=== PATIENT | female | born 1945 | race Caucasian/White ===

== ENCOUNTER 2016-06-23 22:51 | Emergency (ER) | payer MEDICARE, OTHER ==
--- NOTE | 2016-06-23 23:30 | DIRPT ---
CLINICAL DATA: Shortness of breath this evening, syncope EXAM: PORTABLE CHEST 1 VIEW COMPARISON: Portable exam 2308 hours compared to 12/02/2012 FINDINGS: Upper normal heart size. Atherosclerotic calcification aorta. Mediastinal contours and pulmonary vascularity normal. Lungs clear. Clothing artifacts. No definite pleural effusion or pneumothorax. Bones unremarkable. IMPRESSION: No acute abnormalities. Electronically Signed By: Thong Rivers M.D. On: 06/23/2016 23:27
--- NOTE | 2016-06-23 23:32 | EDPRACDOC ---
- General Information Chief Complaint: Altered Mental Status Stated Complaint: ALTERED MENTAL STATUS/FALL Time Seen by Provider: 06/23/16 23:05 Home Medications: Home Medications Aspirin [Aspirin EC] 81 mg PO DAILY 04/25/14 Furosemide [Lasix] 40 mg PO DAILY 04/25/14 Levothyroxine [Synthroid, Levoxyl] 50 mcg PO DAILY 04/25/14 Metoclopramide HCl [Reglan] 10 mg PO ACHS 04/25/14 Potassium Chloride [Klor-Con M20] 10 meq PO DAILY 04/25/14 Propranolol HCl [Inderal] 20 mg PO DAILY 04/25/14 Solifenacin Succinate [Vesicare] 10 mg PO DAILY 04/25/14 Thiamine HCl [Vitamin B-1] 100 mg PO DAILY 04/25/14 Albuterol Sulfate [Proair Hfa] 2 puff INH DAILY 09/20/14 Ammonium Lactate 140 gm TP DAILY 09/20/14 Calcium Carbonate/Vitamin D3 [Calcium + Vit D Caplet (600mg/400IU)] 500 mg PO DAILY 09/20/14 Desloratadine/Pseudoephedrine [Clarinex-D 12 Hour Tablet (2.5mg/120mg)] 1 tab PO Q12H PRN 09/20/14 Desonide 15 gm TP DAILY 09/20/14 Meloxicam 7.5 mg PO DAILY 09/20/14 Methocarbamol 500 mg PO DAILY 09/20/14 Calypso-3/Dha/Epa/Fish Oil [Fish Oil] 10,000 mg PO DAILY 09/20/14 Beclomethasone Dipropionate [Q Brenda 80] 2 puff INH BID 09/21/14 Allergies/Adverse Reactions: Allergies Allergy/AdvReac Type Severity Reaction Status Date / Time ampicillin Allergy Rash-Genera Verified 09/21/14 11:34 lized azithromycin [From Zithromax] Allergy See Verified 09/21/14 11:34 Comments ranitidine Allergy Unknown Verified 09/20/14 15:14 rosuvastatin calcium Allergy Unknown Verified 09/20/14 15:15 [From Crestor] - History of Present Illness HPI: PATIENT WAS STANDING IN KITCHEN. NEXT THING SHE REMEMBERS SHE WAS LYING IN THE FLOOR. EMS STATED CONFUSED AT FIRST AND NOW AT BASELINE. NO LOSS OF BLADDER CONTROL. NO TONGUE INJURY. DENIES PRIOR EPISODE. COMPLAINS OF HEADACHE AT VERTEX. NO HIP PAIN. NO CHEST PAIN. NO SOB. Duration: Since Injury Presyncopal phase:: Reports: None Postsyncopal phase:: Reports: Delayed recovery Prehospital care: Reports: IV, Moniter Associated Signs/Symptoms: Reports: Headache ED Past Medical History - History Reviewed Yes Nurses notes reviewed and agree except as marked Travel Outside of [place] in the Last 3 Months?: No - Patient Medical History Cardiac History: Reports: Hypertension, Hypercholesterolemia Respiratory History: Reports: Asthma GI/ History: Reports: Gastroesophageal Reflux Musculoskeletal History: Reports: Arthritis Systemic History: Reports: Hyperthyroidism, Hypothyroidism - Family Medical History Reports: Diabetes (BROTHER), Cancer (SISTER-BREAST), Stroke (SISTER). Denies: Hypertension, Cardiac Disorders - Social Medical History Smoking Status: Never smoker ETOH: None Substance Abuse: None Lives With: Family Lives In: Home EDM Review of Systems - Review of Systems ROS Negative Except as Marked: Yes All systems reviewed and were negative except as marked Constitutional: No Symptoms Reported. negative: Fever, Chills, Weakness, Fatigue, Loss of Appetite Eyes: No Symptoms Reported. negative: Redness, Blurred Vision, Double Vision, Discharge, Pain, Light Sensitive, Photophobia Ears: No Symptoms Reported. negative: Pain, Hearing Loss, Drainage, Ear Pulling Throat: No Symptoms Reported. negative: Pain, Swelling Nose: No Symptoms Reported. negative: Congestion, Bleeding, Discharge, Injection, Swelling, Deformity, Ecchymosis, Tender, Abrasion, Laceration Mouth: No Symptoms Reported. negative: Pain, Drooling Respiratory: No Symptoms Reported. negative: Cough, Brassy Cough, Barky Cough, Shortness of Breath, Wheezing, Hemoptysis Cardiovascular: Syncope. negative: Chest Pain, Cyanosis, Edema, Orthopnea, Palpitations, PND, Skin Mottling Gastrointestinal: No Symptoms Reported. negative: Pain, Constipation, Nausea, Vomiting, Diarrhea, Melena, Formula Intolerance Genitourinary: No Symptoms Reported. negative: Dysuria, Hematuria, Frequency, Discharge, Bleeding, Testicular Pain, Neurological: Headache. negative: Dizziness, Gait Difficulty, Numbness, Seizure , Speech Difficulty, Weakness Musculoskeletal: No Symptoms Reported. negative: Neck, Chestwall, Ribs, Back, Shoulder, Arm, Elbow, Forearm, Wrist, Hand, Pelvis, Hip, Femur, Knee, Leg, Ankle , Foot Integumentary: No Symptoms Reported. negative: Itching, Rash, Bruising, Wound Allergic/Immunologic: No Symptoms Reported. negative: Hives, Itching Hematologic: No Symptoms Reported. negative: Lymphadenopathy, Easy Bruising, Easy Bleeding Endocrine: No Symptoms Reported. negative: Weight Gain, Weight Loss Psychiatric: No Symptoms Reported. negative: Anxiety, Depression, Hallucinations, Insomnia, Suicidal - Physical Exam Constitutional: Alert (Awake), No apparent distress Oriented to: Time, Person, Place Last recorded Vital Signs: Oxygen Pulse Oxygen Saturation O2 Device Oxygen Flow Rate Fraction of Inspired Oxygen ( FIO2) - HEENT Head: Normal ( normocephalic) Eye Exam: Normal (PERRL, EOMI, Sclera white) Oropharynx: Normal (Pharynx:Moist without exudate,Gums-no swelling) Tympanic Membrane: Normal ENT EAC: Normal TMJ: Normal Nose: No Symptoms Reported (septum midline) Neck: Normal (FROM, trachea at midline) - Respiratory/Cardiovascular Respiratory: Normal - CTA (BBS clear to auscultation without adventitious sounds ) Cardiovascular: Normal (RRR without murmur, gallop or rub) - GI Auscultation: Normal (NABS) Palpation: Normal (Soft,No rebound or guarding, non distended) Tenderness: Non tender Jacome's Sign: Negative - Musculoskeletal Back: Normal (Non-Tender) Extremities: Normal (Normal tone, Pulses 2+ No cyanosis or edema, FROM) - Integumentary Skin: Normal, Warm, Dry Lymphatics: Normal (no adenopathy) - Neurologic Memory Impaired: Normal Motor Function: Normal (Normal tone, Pulses 2+ No cyanosis or edema, FROM) Cranial Nerve: Normal (CN II-X11 intact sensation, strength 5/5) Cerebellar: Normal Mood Description: Normal Perception: Normal - EKG EKG #1 EKG Time: 23:43 -: Yes EKG interpreted by me Rate: bpm: 57 [place]: Normal Rhythm: SB Block: None Hypertrophy: None ST: Normal ED Critical Care Note - Critical Care Note Total Time (mins): 60 - Departure Yes I personally saw and evaluated the patient. Disposition: Trans. to Other Hospital ([facility]) Condition: Fair Final Diagnosis: Subdural hematoma caused by concussion Qualifiers: Encounter type: initial encounter Loss of consciousness presence/duration: with LOC of 30 min or less Qualified Code(s): S06.5X1A - Traumatic subdural hemorrhage with loss of consciousness of 30 minutes or less, initial encounter Education/Counseling Given To: Patient Education/Counseling Given Regarding: Diagnosis, Treatment, Prognosis Referrals: Sanford Tabor MD [Primary Care Provider] - One Week Decision to Transfer Time: 23:58 - Physician Consulted Radiology Time Called: 23:47 Provider Called: MARGARITA (SUBDURAL FALX BLEED) Time Shuttle Hand Returned Call: 23:47 Other Time Called: 23:58 Provider Called: DR. THOMPSON ([facility]) Time Shuttle Hand Returned Call: 23:58 (WILL ACCEPT)
[2016-06-23] MEDS ORDERED: NIMODIPINE 30 MG CAP PO SCH (23:45)
[2016-06-23 23:46] VITALS: BMI 25.8
--- NOTE | 2016-06-23 23:50 | DIRPT ---
CLINICAL DATA: Fall, was found on kitchen floor, uncertain of how long she was there, patient does not remember event EXAM: CT HEAD WITHOUT CONTRAST CT CERVICAL SPINE WITHOUT CONTRAST TECHNIQUE: Multidetector CT imaging of the head and cervical spine was performed following the standard protocol without intravenous contrast. Multiplanar CT image reconstructions of the cervical spine were also generated. COMPARISON: CT head 06/20/2016 FINDINGS: CT HEAD FINDINGS Diffuse dilatation of the ventricular system unchanged. No midline shift or mass effect. Small vessel chronic ischemic changes of deep cerebral white matter. High attenuation subdural hematoma identified along the anterior falx up to 8 mm thick. Questionable focus of LEFT pontine hemorrhage versus beam hardening artifact from skullbase. No additional intracranial hemorrhage identified. No evidence of mass lesion or acute infarction. Benign-appearing basal ganglia calcifications bilaterally. Atherosclerotic calcification of internal carotid and vertebral arteries at skullbase. Mastoid air cells clear. Small air-fluid levels within the maxillary sinuses bilaterally without definite visualized fracture. CT CERVICAL SPINE FINDINGS Visualized skullbase intact. Prevertebral soft tissues normal thickness. Disc space narrowing throughout cervical spine greatest at C5-C6 and C6-C7. Vertebral body heights maintained without fracture or subluxation. Multilevel facet degenerative changes cervical spine. C1-C2 alignment normal. Long linear intraspinal calcification at ventral aspect of thecal sac RIGHT of midline extending 2.3 cm from superior C5 to mid C6, question calcification of the posterior longitudinal ligament. This appears extra dural making meningioma unlikely. Questionable lytic bone lesion is superior C7. No other focal osseous abnormalities. Scattered atherosclerotic calcifications. Tiny nonspecific thyroid nodules. IMPRESSION: Small vessel chronic ischemic changes of deep cerebral white matter. Persistent dilatation of the ventricular system question normal pressure hydrocephalus, stable. 8 mm thick subdural hemo home along the anterior falx, new. Questionable tiny LEFT pontine hemorrhage versus artifact. Degenerative disc and facet disease changes of the cervical spine. No acute cervical spine abnormalities. Linear calcification within the spinal canal at C5-C6 appears extradural question calcification in posterior longitudinal ligament. Small questionable lytic lesion at C7 vertebral body, potentially discogenic but a lytic focus is not excluded such as from a lytic metastasis or myeloma. Findings called to Dr. Hitchcock on 06/23/2016 at 2345 hours. Electronically Signed By: Thong Rivers M.D. On: 06/23/2016 23:47
[2016-06-24 00:23] LABS: AUTOMATED EOSINOPHIL 1.2 % (0-5); AUTOMATED LYMPH 29.4 % (17-44); AUTOMATED NEUTROPHIL 57.4 % (45-76)
[2016-06-24 00:36] LABS: PARTIAL THROMB. TIME 20.1 SEC (22-35)
[2016-06-24 00:39] LABS: BLOOD UREA NITROGEN 17 MG/DL (7-17); CALCULATED OSMOLALITY 271 MOs/Kg (270-290); CHLORIDE 101 mEq/L (98-107); GLUCOSE 99 MG/DL (70-99); SODIUM LEVEL 140 mEq/L (137-146); TOTAL PROTEIN 7.2 G/DL (6.3-8.2)
[2016-06-24 01:46] VITALS: BP 140/94; PULSE 63; TEMP 98
== END 2016-06-24 01:30 | disposition short-term general hospital (02) ==
LOC: ED 22:51
DX: S06.5X1A Traumatic subdural hemorrhage with loss of consciousness of 30 minutes or less, initial encounter (principal); X58.XXXA Exposure to other specified factors, initial encounter; Y93.9 Activity, unspecified
CPT/HCPCS: 36415; 70450; 71010; 72125; 80053; 84484; 85025; 85610; 85730; 93005; 99284; A9270; J3490